=== PATIENT | female | born 1985 | race Caucasian/White ===

== ENCOUNTER 2021-10-15 00:49 | Emergency (ER) | payer SELFPAY ==
[2021-10-15 01:29] LABS: Hematocrit 38.8 % (36.0-45.0); Lymphocytes % 24.9 % (15.3-44.8); MCV 81.1 fL (80-100); RBC Red Blood Cell Count 4.78 M/uL (3.86-4.86)
[2021-10-15 01:42] LABS: ALT/SGPT 11 U/L (12-78); AST/SGOT 8 U/L (15-37); Albumin 3.7 g/dL (3.4-5.0); Alkaline Phosphatase 46 U/L (45-117); BUN Blood Urea Nitrogen 10 mg/dL (7-18); Bicarbonate 24 mmol/L (21-32); Bilirubin Total 0.2 mg/dL (0.2-1.0); Glomerular Filtration Rate 112 ml/min (=/>90); Glucose Level 124 mg/dL (74-106); Magnesium 2.1 mg/dL (1.8-2.4); NT PRO-BNP 43 pg/mL (<125); Potassium 3.6 mmol/L (3.5-5.1); Protein, Total 7.5 g/dL (6.4-8.2); Sodium Level 138 mmol/L (136-145)
[2021-10-15] MEDS ORDERED: MAGNES/ALUMIN/SIMET 30ML UCUP ONE (01:45)
[2021-10-15 01:50] LABS: Bilirubin Direct < 0.1 mg/dL (0-0.2); Troponin High Sensitivity < 3.0 pg/mL (<58.9)
[2021-10-15] MEDS ORDERED: ONDANSETRON 4 MG/2 ML VIAL ONE (01:52)
[2021-10-15] MEDS ORDERED: DIPHENHYDRAMINE 50 MG/ML VIAL ONE (01:52)
[2021-10-15 02:26] LABS: Urine Blood Negative (Negative); Urine Glucose Negative (Negative); Urine Protein Negative (Negative); Urine Specific Gravity 1.025 (1.005-1.030)
--- NOTE | 2021-10-15 05:29 | EDPHYS ---
Physician Documentation [facility] Name: Marilynn Lowe Age: 36 yrs Sex: Female : 1985 Arrival Date: 10/15/2021 Time: 00:52 Bed 16 Private MD: ED Physician Triston Elliott HPI: 10/15 01:09 This 36 yrs old Female presents to ER via Ambulatory with complaints of Chest Pain > 30 kb y/o, Nausea. 01:09 The patient or guardian reports chest pain that is located primarily in the substernal kb area. The pain does not radiate. Associated signs and symptoms: Pertinent positives: diaphoresis, nausea. The chest pain is described as aching. Duration: The patient or guardian reports a single episode. Modifying factors: The symptoms are alleviated by nothing. the symptoms are aggravated by nothing. Severity of pain: At its worst the pain was moderate in the emergency department the pain is unchanged. The patient has not experienced similar symptoms in the past. The patient has not recently seen a physician. Pt reports pain to center of chest that started 1.5 hours ago with shakiness, nausea and diaphoresis. 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 - Social history:: Smoking status: Patient denies any tobacco usage or history of. Patient/guardian denies using alcohol. ROS: 01:09 Constitutional: Negative for fever, chills, and weight loss. kb 01:09 Cardiovascular: Positive for chest pain, Negative for edema, orthopnea, palpitations, paroxysmal nocturnal dyspnea. 01:09 Abdomen/GI: Positive for nausea. 01:09 All other systems are negative. Exam: 01:09 Constitutional: This is a well developed, well nourished patient who is awake, alert, kb and in no acute distress. Head/Face: Normocephalic, atraumatic. ENT: Moist Mucous membranes Cardiovascular: Regular rate and rhythm with a normal S1 and S2. No gallops, murmurs, or rubs. No pulse deficits. Respiratory: Respirations even and unlabored. No increased work of breathing. Talking in full sentences Abdomen/GI: Soft, non-tender. No distention Skin: Warm, dry with normal turgor. Normal color. MS/ Extremity: Pulses equal, no cyanosis. Neurovascular intact. Full, normal range of motion. Neuro: Awake and alert, GCS 15, oriented to person, place, time, and situation. Moves all extremities. Normal gait. Psych: Awake, alert, with orientation to person, place and time. Behavior, mood, and affect are within normal limits. 02:19 ECG was reviewed by the Attending Physician. juan manuel Vital Signs: 01:05 BP 158 / 102; Pulse 73; Resp 18; Temp 97.9(O); Pulse Ox 100% on R/A; Weight 88.9 kg; 5 Height 5 ft. 6 in. (167.64 cm); Pain 8/10; 01:45 BP 155 / 105; Pulse 82; Resp 17; Pulse Ox 98% on R/A; sm5 01:45 BP 152 / 101; Pulse 83; Resp 17; Pulse Ox 99% on R/A; 5 01:05 Body Mass Index 31.63 (88.90 kg, 167.64 cm) [facility] MDM: 00:58 Patient medically screened. juan manuel 01:09 Data reviewed: vital signs, nurses notes. Data interpreted: Pulse oximetry: on room air kb is 100 %. Interpretation: normal. 02:19 ED course: Pt states she has had IV contrast without reaction. Will premedicate with kb benadryl due to shellfish allergy. 02:49 Transition of care: After a detail discussion of the patient's case, care is kb transferred to Triston Elliott MD. 05:27 Differential diagnosis: acute pericarditis, anxiety, chest wall pain, costochondritis, rn esophagitis, pleurisy, pneumonia, pneumothorax, pulmonary embolus. Counseling: I had a detailed discussion with the patient and/or guardian regarding: the historical points, exam findings, and any diagnostic results supporting the discharge/admit diagnosis, lab results, radiology results, the need for outpatient follow up, to return to the emergency department if symptoms worsen or persist or if there are any questions or concerns that arise at home. Special discussion: Based on the patient's history, exam, and Dx evaluation, there is no indication for emergent intervention or inpatient Tx. It is understood by the patient/guardian that if the Sx's persist or worsen they need to return immediately for re-evaluation. I discussed with the patient/guardian in detail that at this point there is no indication for admission to the hospital. It is understood, however, that if the symptoms persist or worsen the patient needs to return immediately for re-evaluation. ED course: CT PE neg, other labs neg, will dc home with pcp f/u. Return precautions given and understood.. 10/15 01:02 Order name: Basic Metabolic Panel; Complete Time: 01:51 kb 10/15 01:02 Order name: CBC with Diff; Complete Time: :35 kb 10/15 01:02 Order name: D-Dimer; Complete Time: :35 kb 10/15 01:02 Order name: LFT's; Complete Time: :51 kb 10/15 01:02 Order name: Magnesium; Complete Time: :51 kb 10/15 01:02 Order name: NT PRO-BNP; Complete Time: :51 kb 10/15 01:02 Order name: Troponin HS; Complete Time: :51 kb 10/15 01:02 Order name: XRAY Chest (1 view) kb 10/15 01:35 Order name: Chest For PE Angio CT wm 10/15 01:35 Order name: COVID-19 SARS RT PCR (Document "Date of Onset" if Symptomatic); Complete wm Time: 03:12 10/15 02:26 Order name: Urine Dipstick-Ancillary; Complete Time: 02:27 EDMS 10/15 01:02 Order name: EKG; Complete Time: 01:03 kb 10/15 01:02 Order name: Cardiac monitoring; Complete Time: :43 kb 10/15 01:02 Order name: EKG - Nurse/Tech; Complete Time: :43 kb 10/15 01:02 Order name: IV Saline Lock; Complete Time: :43 kb 10/15 01:02 Order name: Labs collected and sent; Complete Time: :43 kb 10/15 01:02 Order name: O2 Per Protocol; Complete Time: :43 kb 10/15 01:02 Order name: O2 Sat Monitoring; Complete Time: 01:43 kb EC:19 Rate is 69 beats/min. Rhythm is regular. QRS Loco is Normal. NC interval is normal at kb 150 msec. QRS interval is normal at 82 msec. QT interval is normal at 426 msec. Administered Medications: 01:42 Drug: Maalox (aluminum hydroxide, magnesium hydroxide, simethicone) Suspension (200 sm5 mg-200 mg-20 mg/5 mL) 30 ml Route: PO; 05:30 Follow up: Response: No adverse reaction sm5 01:53 Drug: Benadryl (diphenhydrAMINE) 25 mg Route: IVP; Site: right antecubital; sm5 05:30 Follow up: Response: No adverse reaction sm5 01:53 Drug: Zofran (Ondansetron) 4 mg Route: IVP; Site: right antecubital; sm5 05:31 Follow up: Response: No adverse reaction 5 Disposition: 07:17 Co-signature as Attending Physician, Triston Elliott MD. rn Disposition Summary: 10/15/21 05:28 Discharge Ordered Location: Home rn Problem: new rn Symptoms: have improved rn Condition: Stable rn Diagnosis - Chest pain, unspecified rn Followup: rn - With: Private Physician - When: As needed - Reason: Recheck today's complaints, Re-evaluation by your physician Discharge Instructions: - Discharge Summary Sheet rn - Nonspecific Chest Pain, Adult rn Forms: - Medication Reconciliation Form rn - Thank You Letter rn - Antibiotic mold burner - Prescription Opioid Use rn - Work release form 5 Signatures: Dispatcher [employer] Megan Gallegos FNP-C FNP-Ckb Nieto, Roman, MD MD rn Mazur, Sarah, RN RN [facility]
--- NOTE | 2021-10-15 05:29 | ER ---
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 Coronavirus screen: Vaccine status: Patient reports receiving the 2nd dose of the covid vaccine. Ebola Screen: No symptoms or risks identified at this time. Initial Sepsis Screen: Does the patient meet any 2 criteria? No. Patient's initial sepsis screen is negative. Does the patient have a suspected source of infection? No. Patient's initial sepsis screen is negative. Risk Assessment: Do you want to hurt yourself or someone else? Patient reports no desire to harm self or others. Onset of symptoms was October 15, 2021. 01:05 Method Of Arrival: Ambulatory [facility] 01:05 Acuity: RACHEL 3 sm5 Triage Assessment: 01:07 General: Appears in no apparent distress. Behavior is cooperative. Pain: Complains of sm5 pain in chest. Neuro: Level of Consciousness is awake, alert, obeys commands, Oriented to person, place, time, situation. Cardiovascular: Reports chest pain, diaphoresis, nausea, vomiting, Capillary refill < 3 seconds Patient's skin is warm and dry. Rhythm is sinus rhythm. Respiratory: Airway is patent Trachea midline Respiratory effort is even, unlabored. MEDICAL TRANSLATOR: 05:45 unknown 5 Historical: - Allergies: 01:06 SHELLFISH; sm5 01:06 PENICILLINS; sm5 01:06 Amoxicillin; sm5 01:06 Bactrim; sm5 01:06 Phenergan; sm5 - Home Meds: 01:06 amlodipine 5 mg tab [Active]; Lexapro Oral [Active]; Abilify oral [Active]; sm5 - PMHx: 01:06 Hypertensive disorder; sm5 - Immunization history:: Client reports receiving the 2nd dose of the Covid vaccine. - Social history:: Smoking status: Patient denies any tobacco usage or history of. Patient/guardian denies using alcohol. Screenin:08 Abuse screen: Denies threats or abuse. Denies injuries from another. Nutritional sm5 screening: No deficits noted. Tuberculosis screening: No symptoms or risk factors identified. Fall Risk None identified. Assessment: 01:08 Pain: Pain does not radiate. Pain began 2 hours ago. sm5 01:15 Reassessment: see triage assessment. sm5 02:30 Reassessment: No changes from previously documented assessment. Patient and/or family sm5 updated on plan of care and expected duration. Pain level reassessed. 03:30 Reassessment: Patient and/or family updated on plan of care and expected duration. Pain sm5 level reassessed. Patient is alert, oriented x 3, equal unlabored respirations, skin warm/dry/pink. 04:30 Reassessment: No changes from previously documented assessment. sm5 05:44 Reassessment: No changes from previously documented assessment. Patient and/or family sm5 updated on plan of care and expected duration. Pain level reassessed. Vital Signs: 01:05 BP 158 / 102; Pulse 73; Resp 18; Temp 97.9(O); Pulse Ox 100% on R/A; Weight 88.9 kg; sm5 Height 5 ft. 6 in. (167.64 cm); Pain 8/10; 01:45 BP 155 / 105; Pulse 82; Resp 17; Pulse Ox 98% on R/A; sm5 01:45 BP 152 / 101; Pulse 83; Resp 17; Pulse Ox 99% on R/A; sm5 01:05 Body Mass Index 31.63 (88.90 kg, 167.64 cm) 5 ED Course: 00:52 Patient arrived in ED. bp1 00:55 Zakiya Salinas RN is Primary Nurse. sm5 00:58 Megan Arana FNP-C is PHCP. kb 00:58 Triston Elliott MD is Attending Physician. kb 01:06 Triage completed. sm5 01:08 Arm band placed on right wrist. EKG completed in triage. Results shown to MD. sm5 01:08 Patient has correct armband on for positive identification. Bed in low position. Call [facility] light in reach. Side rails up X2. Client placed on continuous cardiac and pulse oximetry monitoring. NIBP monitoring applied. 01:08 Patient maintains SpO2 saturation greater than 95% on room air. sm5 01:15 XRAY Chest (1 view) In Process Unspecified. EDMS 01:32 Notified ED physician of a critical lab result(s). ddimer [id number]. bb 01:42 COVID-19 SARS RT PCR (Document "Date of Onset" if Symptomatic) Sent. sm5 01:54 Inserted saline lock: 20 gauge in right antecubital area, using aseptic technique. sm5 Blood collected. 02:53 Chest For PE Angio CT In Process Unspecified. EDMS 05:45 No provider procedures requiring assistance completed. IV discontinued, intact, sm5 bleeding controlled, No redness/swelling at site. Pressure dressing applied. Administered Medications: 01:42 Drug: Maalox (aluminum hydroxide, magnesium hydroxide, simethicone) Suspension (200 sm5 mg-200 mg-20 mg/5 mL) 30 ml Route: PO; 05:30 Follow up: Response: No adverse reaction 5 01:53 Drug: Benadryl (diphenhydrAMINE) 25 mg Route: IVP; Site: right antecubital; sm5 05:30 Follow up: Response: No adverse reaction 5 01:53 Drug: Zofran (Ondansetron) 4 mg Route: IVP; Site: right antecubital; sm5 05:31 Follow up: Response: No adverse reaction 5 Medication: 01:08 VIS not applicable for this client. 5 Outcome: 05:28 Discharge ordered by . rn 05:45 Discharged to home ambulatory. 5 05:45 Condition: stable 05:45 Discharge instructions given to patient, Instructed on discharge instructions, follow up and referral plans. Demonstrated understanding of instructions, follow-up care. 05:46 Patient left the ED. 5 Signatures: Dispatcher [employer] EDMS Megan Arana, ISIDRO RN ANTE PARTUM-Tonja Laird RN Triston Mata MD MD rn Paniauga, Brittany bp1 Mazur, Sarah, RN RN 5
[2021-10-15 06:11] VITALS: TEMP 97.9
[2021-10-15 06:13] VITALS: BP 152/101; O2SAT 99
--- NOTE | 2021-10-15 08:13 | EKG ---
Test Date: 2021-10-15 Test Time: 00:58:40 Machinery Engineer: MEASUREMENT RESULTS: Intervals: Rate: 69 NM: 150 QRSD: 82 QT: 398 QTc: 426 [place]: P: 58 NM: 150 QRS: 60 T: 50 INTERPRETIVE STATEMENTS: Normal sinus rhythm Normal ECG No previous ECG available for comparison Electronically Signed On 10-15-21 08:12:22 CDT by Carlso Jon
--- NOTE | 2021-10-15 14:40 | RAD REPORT ---
EXAM DESCRIPTION: RAD - Chest Single View - 10/15/2021 1:13 am CLINICAL HISTORY: 36 years, Female, CHEST PAIN COMPARISON: None. FINDINGS: Single view of the chest was obtained portable. No prior films are available for compariso n. The cardiomediastinal silhouette demonstrate to be unremarkable. The heart is not enlarged. The thoracic aorta is unremarkable. Costophrenic angles are sharp. No areas of consolidation or masses are seen. The rest of the soft tissue and bony structures demonstrate to be unremarkable. IMPRESSION: No acute cardiopulmonary process identified. Electronically signed by: Akira Zacarias MD 10/15/2021 2:45 AM CDT Due to temporary technical issues with the PACS/Fluency reporting system, reports are being signed by the in house radiologists without review as a courtesy to insure prompt reporting. The interpreting radiologist is fully responsible for the content of the report.
--- NOTE | 2021-10-15 16:32 | RAD REPORT ---
EXAM DESCRIPTION: CT - Chest For Pe Angio - 10/15/2021 6:12 am CLINICAL HISTORY: 36 years Female Chest pain COMPARISON: Chest x-ray 10/15/2021. TECHNIQUE: Intravenous low osmolar contrast. Coronal and sagittal reformations including 3D maximu m intensity projections. This exam was performed according to our departmental dose-optimization program, which includes autom ated exposure control, adjustment of the mA and/or kV according to patient size and/or use of iterati ve reconstruction technique. FINDINGS: PULMONARY ARTERIAL SYSTEM: Contrast bolus is adequate. No CT evidence for pulmonary embo lism. CARDIAC: Normal. AORTA/VASCULAR: No aneurysm. LYMPH NODES/MEDIASTINUM: No thoracic adenopathy. CENTRAL AIRWAYS: Central airways are patent. LUNGS: No pulmonary infiltrates or masses. PLEURA: Normal. ESOPHAGUS: Collapsed and not well assessed by CT, without obvious abnormality. THYROID: Negative, where seen. CHEST WALL: Normal. UPPER ABDOMEN: No acute findings. Colonic diverticulosis. Subcentimeter hypodensity in the left kid trev, too small to characterize. THORACIC SKELETAL: No acute finding. ADDITIONAL CHEST FINDINGS: None. IMPRESSION: 1. No evidence of acute pulmonary embolus. 2. No acute thoracic findings. Electronically signed by: Benjamin Barrios MD 10/15/2021 5:16 AM CDT Due to temporary technical issues with the PACS/Fluency reporting system, reports are being signed by the in house radiologists without review as a courtesy to insure prompt reporting. The interpreting radiologist is fully responsible for the content of the report.
--- OUTSIDE RECORDS SUMMARY | 2021-10-17 13:41 | XMS REPORT | Continuity of Care Document ---
:1985 Author Organization [facility] t Address [address] [place] [address] Care Team Providers Name Role Phone KAYLIN Primary Care Physician Unavailable Esmer ANDREA Attending Clinician Unavailable Nila PETERSON Attending Clinician NILA Attending Clinician Unavailable Tate PETERSON, J Attending Clinician Doctor Unassigned, Name Attending Clinician Unavailable Kaylin MELVIN Attending Clinician KAYLIN Attending Clinician Unavailable Payers Payer Name Policy Type Policy Number Effective Date Expiration Date [id number] 2018 00:00:00 OUT OF STATE Problems Condition Condition Condition Status Onset Resolution Last Treating Co mments Source Name Details Category Date Date Treatment Clinician Date Tubal Tubal Disease Active Univers ligation ligation 07-30 ity of status status 00:00: [address] Branch Transient Transient Disease Active Uni vers hypertensi hypertensi - it y of on of on of 00:00: [place] , , 00 Me dical antepartum antepartum Br anch Headache Headache Disease Active Overview: Un [place] 2- Formattin ity of 00:00: g of this [place] 00 note Medical might be Branch different from the original. 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[employer] Anemia Anemia Disease Active Univers 08-30 ity of 00:00: [place] 00 Medical Branch Anxiety Anxiety Disease Active Univers 08-30 ity of 00:00: [place] [facility] Need for Need for Disease Active Unive rs rubella rubella 08-30 ity of vaccin[place] vaccin[place] Allergies, Adverse Reactions, Alerts Allergy Allergy Status Severity Reaction(s) Onset Inactive Treating Comm ents Source Name Type Date Date Clinician Seafood/ Propensi Active Anaphylaxis 0 U nivers Fish ty to 1-04 ity of adverse 00:00: [place] reaction Medical s Branch Shellfis Propensi Active Anaphylaxis 2021-0 U nivers h ty to 1-04 ity of Derived adverse 00:00: [place] reaction Medical s Branch SEAFOOD/ Food Active Anaphylaxis 0 Uni vers FISH -04 ity of 00:00: [place] [facility] SHELLFIS DRUG Active Anaphylaxis 0 Uni vers H INGREDI -04 ity of DERIVED 00:00: [place] 00 Medical Branch Amoxicil Propensi Active Anaphylaxis 2005-0 U nivers kelle ty to 3-27 ity of adverse 00:00: [place] reaction 00 Medical s Branch Sulfamet Propensi Active Univer s hoxazole ty to 3-27 ity of -Trimeth adverse 00:00: [place] oprim reaction 00 Medical s Branch Prometha Propensi Active Univer s zine Hcl ty to 3-27 ity of adverse 00:00: [place] reaction 00 Medical s Branch Penicill Propensi Active Anaphylaxis 2005-0 U nivers ins ty to 3-27 ity of adverse 00:00: [place] reaction 00 Medical s Branch Sulfa Propensi Active Univers (Sulfona ty to 3-27 ity of mide adverse 00:00: [place] Antibiot reaction 00 Medica l ics) s Branch AMOXICIL DRUG Active Anaphylaxis 2006-0 Uni vers KELLE INGREDI 3-27 ity of 00:00: [place] 00 Medical Branch SULFAMET DRUG Active Univers HOXAZOLE 3-27 ity of -TRIMETH 00:00: [place] OPRIM 00 Medical Branch PENICILL Drug Active Anaphylaxis Uni vers INS Class 3-27 ity of 00:00: [place] 00 Medical Branch PROMETHA DRUG Active Univers ZINE HCL INGREDI 3-27 ity of 00:00: [place] 00 Medical Branch SULFA Drug Active Univers (SULFONA Class 3-27 ity of MIDE 00:00: [place] ANTIBIOT 00 Medical ICS) Branch Social History Social Habit Start Date Stop Date Quantity Comments Source History SDOH University o f Alcohol Frequency [facility] edical Branch History SDOH University o f Alcohol Std [place] Medical Drinks Branch History SDPA University o f Alcohol Binge [place] Medic al Branch Exposure to 2021-09-07 2021-09-17 Not sure [facility]-CoV-2 00:00:00 19:18:00 [place] Medical (event) Branch Alcohol intake 2021-09-17 2021-09-17 Current University of 00:00:00 00:00:00 non-drinker of [facility] alcohol (finding) Branch Tobacco use and 2012-05-27 2012-05-27 Never used Universit y of exposure 00:00:00 00:00:00 [facility] Alcohol Comment 2012-05-27 2012-05-27 socially before Univ ersity of 00:00:00 00:00:00 [facility] Sex [birth year] Universit y of 00:00:00 00:00:00 [facility] Smoking Status Start Date Stop Date Source Never smoker [facility] Branch Medications Ordered Filled Start Stop Current Ordering Indication Dosage Frequency Signature Comments Components Source Medication Medication Date Date Medication? Clinician (SIG) Name Name metroNIDAZO 2021- Yes [id number] 500mg Take 1 Univers LE 500 mg 6-18 09-30 tablet by ity of tablet 00:00: 04:59 mouth [place] 00 :00 every 12 Medical (twelve) Branch hours for 7 days. ARIPiprazol Yes [id number] 2mg Take 1 Univers e 2 mg 4-28 tablet by ity of tablet 00:00: mouth [place] 00 daily. Medical Branch ARIPiprazol 0 Yes [id number] 2mg Take 1 Univers e 2 mg 4-28 tablet by ity of tablet 00:00: mouth [place] 00 daily. Medical Branch ARIPiprazol Yes [id number] 2mg Take 1 Univers e 2 mg 4-28 tablet by ity of tablet 00:00: mouth [place] 00 daily. Medical Branch ARIPiprazol 0 Yes [id number] 2mg Take 1 Univers e 2 mg 4-28 tablet by ity of tablet 00:00: mouth [place] 00 daily. Medical Branch ARIPiprazol Yes [id number] 2mg Take 1 Univers e 2 mg 4-28 tablet by ity of tablet 00:00: mouth [place] 00 daily. Medical Branch ARIPIPRAZOL 2021- No [id number] TAKE 1 Univers E 5 mg 4-25 04-28 TABLET BY ity of tablet 00:00: 00:00 MOUTH [place] 00 :00 EVERY DAY Medical Branch HYDROXYZINE 2021-0 Yes [id number] TAKE 1 Univers 10 mg 3-09 TABLET BY ity of tablet 00:00: MOUTH [place] 00 EVERYDAY Medical AT BEDTIME Branch HYDROXYZINE 2021-0 Yes [id number] TAKE 1 Univers 10 mg 3-09 TABLET BY ity of tablet 00:00: MOUTH [place] 00 EVERYDAY Medical AT BEDTIME Branch HYDROXYZINE 2021-0 Yes [id number] TAKE 1 Univers 10 mg 3-09 TABLET BY ity of tablet 00:00: MOUTH [place] 00 EVERYDAY Medical AT BEDTIME [place] HYDROXYZINE 2021-0 Yes [id number] TAKE 1 Univers 10 mg 3-09 TABLET BY ity of tablet 00:00: MOUTH [place] 00 EVERYDAY Medical AT BEDTIME Branch HYDROXYZINE 2021-0 Yes [id number] TAKE 1 Univers 10 mg 3-09 TABLET BY ity of tablet 00:00: MOUTH [place] 00 EVERYDAY Medical AT BEDTIME Branch amLODIPine 2020-03 Yes [id number] 5mg Take 1 U nivers 5 mg tablet 2-15 tablet by ity of 00:00: mouth [place] 00 daily. Medical Branch escitalopra 2020-03 Yes [id number] 10mg Take 1 Univers m oxalate 2-15 tablet by ity o f 10 mg 00:00: mouth [place] tablet 00 daily. Medical Branch amLODIPine 2020-03 Yes [id number] 5mg Take 1 U nivers 5 mg tablet 2-15 tablet by ity of 00:00: mouth [place] 00 daily. Medical Branch escitalopra 2020-03 Yes [id number] 10mg Take 1 Univers m oxalate 2-15 tablet by ity o f 10 mg 00:00: mouth [place] tablet 00 daily. Medical Branch amLODIPine 2020-03 Yes [id number] 5mg Take 1 U nivers 5 mg tablet 2-15 tablet by ity of 00:00: mouth [place] 00 daily. Medical Branch escitalopra 2020-03 Yes [id number] 10mg Take 1 Univers m oxalate 2-15 tablet by ity o f 10 mg 00:00: mouth [place] tablet 00 daily. Medical Branch amLODIPine 2020-03 Yes [id number] 5mg Take 1 U nivers 5 mg tablet 2-15 tablet by ity of 00:00: mouth [place] 00 daily. Medical Branch escitalopra 2020-03 Yes [id number] 10mg Take 1 Univers m oxalate 2-15 tablet by ity o f 10 mg 00:00: mouth [place] tablet 00 daily. Medical Branch amLODIPine 2020-03 Yes [id number] 5mg Take 1 U nivers 5 mg tablet 2-15 tablet by ity of 00:00: mouth [place] 00 daily. Medical Branch escitalopra 2020-03 Yes [id number] 10mg Take 1 Univers m oxalate 2-15 tablet by ity o f 10 mg 00:00: mouth [place] tablet 00 daily. [facility] Immunizations Ordered Filled Immunization Date Status Comments [facility] e Immunization Name Name SARS-COV-2 COVID-19 2020-11-12 Completed Unive rsity of PFIZER VACCINE 00:00:00 [facility] [place] [facility] SARS-COV-2 COVID-19 2020-11-12 Completed Unive rsity of PFIZER VACCINE 00:00:00 [facility] [place] [facility] SARS-COV-2 COVID-19 2020-11-12 Completed Unive rsity of PFIZER VACCINE 00:00:00 [facility] [place] [facility] SARS-COV-2 COVID-19 2020-11-12 Completed Unive rsity of PFIZER VACCINE 00:00:00 [facility] [place] [facility] SARS-COV-2 COVID-19 2020-11-12 Completed Unive rsity of PFIZER VACCINE 00:00:00 [facility] [place] [facility] TDAP 2013-10-18 Completed University of 00:00:00 [place] [facility] TDAP 2013-10-18 Completed University of 00:00:00 [place] [facility] TDAP 2013-10-18 Completed University of 00:00:00 [place] [facility] TDAP 2013-10-18 Completed University of 00:00:00 [place] [facility] TDAP 2013-10-18 Completed University of 00:00:00 [place] [facility] MMR 2011-08-31 Completed University of 00:00:00 [place] [facility] MMR 2011-08-31 Completed University of 00:00:00 [place] [facility] MMR 2011-08-31 Completed University of 00:00:00 [place] [facility] MMR 2011-08-31 Completed University of 00:00:[address] [facility] Branch MMR 2011-08-31 Completed University of 00:00:[address] [facility] Branch [facility] 2009-09-06 Completed University of 00:00:00 [facility] 2009-09-06 Completed University of 00:00:[address] [facility] Branch [facility] 2009-09-06 Completed University of 00:00:[address] [facility] Branch MMR 2009-09-06 Completed University of 00:00:00 [facility] MMR 2009-09-06 Completed University of 00:00:00 [facility] Vital Signs Vital Name Observation Time Observation Value Comments Source Systolic blood 2021-09-18 00:28:00 138 mm[Hg] Univer sity of pressure [facility] Diastolic blood 2021-09-18 00:28:00 89 mm[Hg] Unive rsity of pressure [facility] Heart rate 2021-09-18 00:27:00 80 /min [facility] Body temperature 2021-09-18 00:27:00 37.11 [facility] Respiratory rate 2021-09-18 00:27:00 17 /min [facility] Body height 2021-09-18 00:27:00 167.6 cm [facility] Body weight 2021-09-18 00:27:00 88.905 kg [facility] BMI 2021-09-18 00:27:00 31.64 kg/m2 [facility] Oxygen saturation in 2021-09-18 00:27:00 98 /min [facility] Arterial blood by [facility] Pulse oximetry Branch Systolic blood 2021-07-25 20:58:00 129 mm[Hg] Univer sity of pressure [facility] Diastolic blood 2021-07-25 20:58:00 90 mm[Hg] Unive rsity of pressure [facility] Heart rate 2021-07-25 20:58:00 85 /min [facility] Body temperature 2021-07-25 20:58:00 36.67 Odilia [facility] Body height 2021-07-25 20:58:00 167.6 cm [facility] Body weight 2021-07-25 20:58:00 87.544 kg [facility] BMI 2021-07-25 20:58:00 31.15 kg/m2 [facility] Oxygen saturation in 2021-07-25 20:58:00 98 /min [facility] blood by [facility] Pulse oximetry [place] Procedures Procedure Date / Time Performed Performing Clinician Sourc e POCT URINALYSIS 2021-09-18 00:28:00 Analy Dotson Kennard o f [facility] PATIENT FINANCIAL 2021-09-18 00:16:37 Doctor Unassigned, No [facility] POLICY Name [facility] Encounters Start End Encounter Admission Attending Care Care Encounter Source Date/Time Date/Time Type Type Clinicians Facility Department ID 2021-12-11 2021-12-11 Outpatient Katheryn ANDREA [facility] [id number] Univers 09:00:00 09:00:00 CASIMIRO [id number] [facility] 2021-12-11 2021-12-11 Outpatient Katheryn ANDREA [facility] [id number] Univers 09:00:00 09:00:00 CASIMIRO [facility] 2021-09-18 2021-09-18 Telephone Nila [facility] [id number] Univers 00:00:00 00:00:00 [facility] [id number] chris [facility] [id number] Jose Francisco as RANDY?BLEA [phone] [address] MEDICAL OFFICE BUILDING 2021-09-17 2021-09-17 Outpatient Katheryn DOTSON [facility] [id number] Univers 18:00:00 19:47:03 [facility] 2021-09-17 2021-09-17 Urgent [place], Analy [facility] [id number] Univers 18:00:00 18:20:00 Care Tate Tamar [facility] [id number] ity of [place] [id number] Jose Francisco as RANDY?BLEA [id number] [address] MEDICAL OFFICE BUILDING 2021-09-17 2021-09-17 Outpatient R [facility] [id number] Univers 18:00:00 18:00:00 [id number] ity [facility] 2021-09-17 2021-09-17 Orders Doctor YAMILETH [id number] Univers 00:00:00 00:00:00 Only Unassigned, FRANKLIN [id number] ity of Erhard [facility] [id number] Jose Francisco as [id number] [address] 2021-09-03 2021-09-03 Outpatient R EMRE [facility] [id number] Univers 08:30:00 08:30:00 CASIMIRO [facility] 2021-08-27 2021-08-27 [facility] [id number] Univers 00:00:00 00:00:00 [facility] [id number] i ty of [place] [id number] [facility] [id number] [facility] Branch SPECIALTY CARE 2021-08-22 2021-08-22 Outpatient R KAYLIN [facility] [id number] Univers 16:20:00 16:20:00 [facility] 2021-07-25 2021-07-25 [facility] [id number] Univers 16:20:00 17:51:51 Visit [facility] [id number] i ty of [place] [id number] [facility] [phone] [facility] PRIMARY & [facility] Branch SPECIALTY CARE Results Test Description Test Time Test Comments Results Result Comments Source POCT URINALYSIS W SPECIFIC GRAVITY 2021-09-18 00:29:00 Test Item Value Reference Range Interpretation Comme nts POCT U SP GRAV (test code = 1.030 mg/dl 1.005-1.025 A 3255) POCT PH U (test code = 3254) 5 mg/dl 5-8 POCT U LEUK EST (test code = + Negative - Negative 3263) POCT U NIT (test code = 3262) neg Negative - Negative POCT U PROT (test code = 3259) neg Negative - Negative POCT U GLU (test code = 3256) neg Negative - Negative POCT U KETONE (test code = neg Negative - Negative 3258) POCT U UROBILI (test code = neg 0.2-1 3260) POCT U BILI (test code = 3261) neg Negative - Negative POCT U BLD (test code = 3257) trace Negative - Negative POCT U COLOR (test code = 3266) dark POCT U APPEAR (test code = clear 3267) MARIBELL (test code = AMRIBELL) accurate development and interpretation of all internal controls Lab Interpretation (test code = Abnormal 51202-5) [facility]
== END 2021-10-15 05:46 | disposition home or self-care (01) ==
LOC: ER 00:49
DX: R07.89 Other chest pain (principal); I10 Essential (primary) hypertension; Z20.822 Contact with and (suspected) exposure to COVID-19; Z88.0 Allergy status to penicillin; Z88.1 Allergy status to other antibiotic agents; Z88.8 Allergy status to other drugs, medicaments and biological substances
CPT/HCPCS: 36415; 71045; 71275; 80048; 80076; 81003; 83735; 83880; 84484; 85025; 85379; 93005; 96374; 96375; 99285; J1200; J2405; Q9967; U0003